=== PATIENT | male | born 2000 | race Hispanic/Latino ===

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

== ENCOUNTER 2021-10-10 14:42 | Emergency (ER) | payer OTHER ==
--- OUTSIDE RECORDS SUMMARY | 2021-10-10 14:52 | XMS REPORT | Continuity of Care Document ---
:2000 Author Organization [facility] t Address [address] [place] [address] Care Team Providers Name Role Phone Unavailable Unavailable Unavailable Problems Condition Condition Condition Status Onset Resolution Last Treating Co mments Source Name Details Category Date Date Treatment Clinician Date Deficiency Deficiency Problem Active [facility] anterior [facility] cruciate cruciate l ligament ligament Outpat i of right of right ent knee knee Clinics Pain in Pain in Diagnosis Active [facility] right knee [facility] Sprain of Sprain of Diagnosis Active [facility] anterior anterior [facility] - cruciate cruciate Memori a ligament ligament l of right of right Outpat i knee, knee, ent subsequent subsequent Cl inics encounter encounter Allergies, Adverse Reactions, Alerts This patient has no known allergies or adverse reactions. Medications Ordered Filled Start Stop Current Ordering Indication Dosage Frequency Signature Comments Components Source Medication Medication Date Date Medication? Clinician (SIG) Name Name Hydrocodone Hydrocodone Yes Anoop not [facility] defined [facility] Tretinoin Tretinoin Yes [facility] not [facility] Clindamycin Clindamycin Yes Anoop not [facility] Phosphate Phosphate Mor[facility] defined [facility] Doxycycline Doxycycline Yes Anoop not [facility] Monohydrate Monohydrate [facility] defined [facility] Oseltamivir Oseltamivir Yes Anoop not [facility] Phosphate Phosphate Morales defined [facility] Procedures This patient has no known procedures. Encounters Start End Encounter Admission Attending Care Care Encounter Source Date/Time Date/Time Type Type Clinicians Facility Department ID 2019-12-22 2019-12-22 [facility] [id number] [facility] ent Clinics 2019-09-04 2019-09-04 [facility] [id number] [facility] 14:48[facility] 14:48[facility] Clinics 2019-08-22 2019-08-22 [facility] [id number] [facility] 10:43:00 10:43:[facility] ent Clinics 2019-08-19 2019-08-19 [facility] [id number] [facility] [address] 15:53:00 15:53:00 [facility] ent [facility] 2019-08-19 2019-08-19 [facility] [id number] [facility] 15[facility]30[facility]00 15:30:00 [facility] ent Clinics 2019-07-08 2019-07-08 [facility] [id number] 15:30:00 15:30:00 [facility] ent [facility] 2019-06-10 2019-06-10 [facility] [id number] [facility] 15:30:00 15:30:00 [facility] Clinics 2019-06-03 2019-06-03 [facility] [id number] [facility] 14:33:00 14:33:00 [facility] 2019-04-29 2019-04-29 [facility] [id number] 15:30:00 15:30:00 [facility] ent Clinics 2019-04-08 2019-04-08 [facility] [id number] [facility] 15[facility]00:00 15:00:00 [facility] Clinics 2019-03-20 2019-03-20 Outpatient [facility] [id number] [facility] 13:30:00 13:30:00 [facility] ent Clinics 2019-01-02 2019-01-02 Outpatient [facility] [id number] [facility] 13:30:00 13:30:00 [facility] ent Clinics 2018-12-23 2018-12-23 Outpatient [facility] [id number] [facility] 09:30:00 09:30:00 [facility] Clinics Results This patient has no known results.
[2021-10-10] MEDS ORDERED: IBUPROFEN 200 MG TAB PO ONE (16:45)
[2021-10-10 17:15] LABS: SARS-COV-2 RT PCR POSITIVE (NEGATIVE)
--- NOTE | 2021-10-10 17:27 | ER ---
Nurse's Notes [facility] Name: Ronn Barnes Age: 21 yrs Sex: Male : 2000 Arrival Date: 10/10/2021 Time: 14:44 Bed Waiting Private MD: Diagnosis: Coronavirus infection, unspecified Presentation: 10/10 15:48 Chief complaint: Patient states: he started having fever yesterday, headache, and ap3 chills. Coronavirus screen: chills, congestion, fever, headache, muscle pain, Client presents with at least one sign or symptom that may indicate coronavirus-19. Standard/surgical mask placed on the client. Provider contacted for isolation considerations. Ebola Screen: No symptoms or risks identified at this time. Initial Sepsis Screen: Does the patient meet any 2 criteria? Temp <36.0*C (96.8*F)) or > 38.3*C (100.9*F). HR > 90 bpm. Yes Does the patient have a suspected source of infection? No. Patient's initial sepsis screen is negative. Risk Assessment: Do you want to hurt yourself or someone else? Patient reports no desire to harm self or others. Onset of symptoms was October 09, 2021. 15:48 Method Of Arrival: Ambulatory ap3 15:48 Acuity: LIVIER 3 ap3 Triage Assessment: 15:51 General: Appears in no apparent distress. Behavior is calm, cooperative, appropriate ap3 for age. Pain: Complains of pain in generalized body aches. Neuro: Level of Consciousness is awake, alert, obeys commands, Oriented to person, place, time, situation. Cardiovascular: Patient's skin is warm and dry. Respiratory: Airway is patent Breath sounds are clear bilaterally. Historical: - Allergies: 15:50 No Known Allergies; ap3 - Home Meds: 15:50 None [Active]; ap3 - PMHx: 15:50 None; ap3 - PSHx: 15:50 None; ap3 - Immunization history:: Client reports having NOT received the Covid vaccine. - Social history:: Smoking status: Patient denies any tobacco usage or history of. Screenin:52 Abuse screen: Denies threats or abuse. Nutritional screening: No deficits noted. ap3 Tuberculosis screening: No symptoms or risk factors identified. Fall Risk None identified. Vital Signs: 15:48 BP 120 / 65 RA Sitting; Pulse 120; Resp 19; Temp 102.8; Pulse Ox 100% on R/A; Weight ap3 71.21 kg; Height 5 ft. 8 in. (172.72 cm); 16:45 Temp 101.0(O); ap3 18:44 Pulse 108; Resp 20; Temp 100.8; Pulse Ox 100% ; kb 15:48 Body Mass Index 23.87 (71.21 kg, 172.72 cm) ap3 ED Course: 14:44 Patient arrived in ED. mr 15:50 Triage completed. ap3 15:52 Arm band placed on right wrist. ap3 15:52 Patient has correct armband on for positive identification. Adult w/ patient. Pulse ox ap3 on. NIBP on. 15:53 COVID swab sent to lab. Flu and/or RSV swab sent to lab. ap3 17:13 Bhumi Bonner FNP-C is [facility]. kb 17:13 Ciro Virgen MD is Attending Physician. kb Administered Medications: 16:46 Drug: Ibuprofen 600 mg Route: PO; ap3 Outcome: 17:26 Discharge ordered by . kb 17:36 Patient left the ED. kb Signatures: Bhumi Bonner FNP-C FNP-Kathryn Schwartz Mirela August, RN RN ap3
--- NOTE | 2021-10-10 17:27 | EDPHYS ---
Physician Documentation [facility] Name: Ronn Barnes Age: 21 yrs Sex: Male : 2000 Arrival Date: 10/10/2021 Time: 14:44 Bed Waiting Private MD: ED Physician Ciro Virgen HPI: 10/10 18:45 This 21 yrs old Male presents to ER via Ambulatory with complaints of High kb Heart rate, Cough, Congestion, Fever. 18:45 The patient or guardian reports flu symptoms, low-grade fever, myalgias. Onset: The kb symptoms/episode began/occurred yesterday. Severity of symptoms: At their worst the symptoms were moderate, in the emergency department the symptoms are unchanged. Modifying factors: The symptoms are alleviated by nothing, the symptoms are aggravated by nothing. Associated signs and symptoms: Pertinent positives: fever, Pertinent negatives: chest pain, diarrhea, ear ache, nausea, rhinorrhea, sore throat, vomiting. The patient has not experienced similar symptoms in the past. The patient has not recently seen a physician. Pt reports fever, bodyaches, chills and noticed his heart was beating fast tonight so he came in. Historical: - Allergies: 15:50 No Known Allergies; ap3 - Home Meds: 15:50 None [Active]; ap3 - PMHx: 15:50 None; ap3 - PSHx: 15:50 None; ap3 - Immunization history:: Client reports having NOT received the Covid vaccine. - Social history:: Smoking status: Patient denies any tobacco usage or history of. ROS: 18:44 Respiratory: Negative for shortness of breath, cough, wheezing, and pleuritic chest kb pain. 18:44 Constitutional: Positive for body aches, chills, fatigue, fever, malaise. 18:44 All other systems are negative. Exam: 18:44 Constitutional: This is a well developed, well nourished patient who is awake, alert, kb and in no acute distress. Head/Face: Normocephalic, atraumatic. ENT: Moist Mucous membranes Cardiovascular: Regular rate and rhythm with a normal S1 and S2. No gallops, murmurs, or rubs. No pulse deficits. Respiratory: Respirations even and unlabored. No increased work of breathing. Talking in full sentences Skin: Warm, dry with normal turgor. Normal color. MS/ Extremity: Pulses equal, no cyanosis. Neurovascular intact. Full, normal range of motion. Neuro: Awake and alert, GCS 15, oriented to person, place, time, and situation. Moves all extremities. Normal gait. Psych: Awake, alert, with orientation to person, place and time. Behavior, mood, and affect are within normal limits. Vital Signs: 15:48 BP 120 / 65 RA Sitting; Pulse 120; Resp 19; Temp 102.8; Pulse Ox 100% on R/A; Weight ap3 71.21 kg; Height 5 ft. 8 in. (172.72 cm); 16:45 Temp 101.0(O); ap3 18:44 Pulse 108; Resp 20; Temp 100.8; Pulse Ox 100% ; kb 15:48 Body Mass Index 23.87 (71.21 kg, 172.72 cm) ap3 MDM: 17:26 Patient medically screened. kb 18:44 Data reviewed: vital signs, nurses notes. Data interpreted: Pulse oximetry: on room air kb is 100 %. Interpretation: normal. Counseling: I had a detailed discussion with the patient and/or guardian regarding: the historical points, exam findings, and any diagnostic results supporting the discharge/admit diagnosis, lab results, the need for outpatient follow up, a family practitioner, to return to the emergency department if symptoms worsen or persist or if there are any questions or concerns that arise at home. 10/10 15:53 Order name: COVID-19/FLU A+B (Document "Date of Onset" if Symptomatic); Complete Time: ap3 17:23 Administered Medications: 16:46 Drug: Ibuprofen 600 mg Route: PO; ap3 Disposition: 10/11 12:58 Co-signature as Attending Physician, Ciro Virgen MD I agree with the assessment and yoselin plan of care. Disposition Summary: 10/10/21 17:26 Discharge Ordered Location: Home Condition: Stable kb Diagnosis - Coronavirus infection, unspecified kb Followup: kb - With: Emergency Department - When: As needed - Reason: Worsening of condition Followup: kb - With: Private Physician - When: 2 - 3 days - Reason: Recheck today's complaints, Continuance of care, Re-evaluation by your physician Discharge Instructions: - Discharge Summary Sheet kb - Viral Respiratory Infection, [id number] kb - COVID-19 kb Forms: - Medication Reconciliation Form kb - Thank You Letter kb - Antibiotic Education kb - Prescription Opioid Use kb Signatures: Dispatcher [employer] Bhumi Roy, OSWALDO TORRES-Ciro Vasquez MD MD cha Prokisch, Amanda RN RN ap3
[2021-10-10 17:48] VITALS: BP 120/65; O2SAT 100
[2021-10-10 17:50] VITALS: TEMP 101
== END 2021-10-10 17:36 | disposition home or self-care (01) ==
LOC: ER 14:42
DX: U07.1 COVID-19 (principal)
CPT/HCPCS: 0240U; 99283